=== PATIENT | female | born 1975 | race Caucasian/White ===

== ENCOUNTER 2017-07-23 13:44 | Observation (INO) | payer OTHER ==
[~2017-07-23] VITALS: Ht 160 cm; Wt 71.7 kg
--- NOTE | ~2017-07-23 | ER ---
PATIENT'S NAME: MARILYN VALDEZ [facility] AGE: 42 Y [address] ROOM: G6339 [place], [place] [address] LOCATION: GPCU ADMIT DATE: 07/23/2017 ER/Outpatient Report DISCHARGE DATE: 07/24/2017 FAMILY PHYSICIAN: Hi Cooper MD ATTENDING PHYSICIAN: Dayo Hester TIME OF ARRIVAL: 1349 hours. TIME OF EXAM: 1350 hours. CHIEF COMPLAINT: Near syncopal episode. HISTORY OF PRESENT ILLNESS: The patient reports that she has been having problems with shortness of breath off and on for the past 2 years. Usually with rest things get better, but she states she could not go very far or do much activity before she does get short of breath. She reports last night she was mowing their camp area when she became very short of breath. She felt like she couldn't catch her breath. She did stop. They were at the [place] [facility] area, so she did lay down on a picnic table. She said it took a lot longer for her to get her breath back and for her to feel like she could breathe without having pain than it normally does. She states she has had some twinges of the left chest area ever since. Reports that she felt as though she was going to pass out with the episode last night. Today, she did call and talk with her primary provider in [place] and they recommended that she come here to the ER to be evaluated. She continues to have twinges of left chest pain. Currently, she states she is a little short of breath. She feels as though if she were to get on a treadmill at this time, she would pass out. She feels there is a fullness in her neck area. She denies having any difficulty breathing and has no problems with swallowing. She just feels a fullness in her chest and her neck area. She has not had a fever. She has not had any nausea and no vomiting. She has not been diaphoretic. Has not had any change in bowel or bladder pattern. ALLERGIES: SHE HAS NO KNOWN ALLERGIES. CURRENT MEDICATIONS: On her chart and reviewed by me. PAST MEDICAL HISTORY: Seasonal allergies, GERD, depression, and constipation. She had exercise- induced asthma when she was younger. She has a strong family history of heart PATIENT'S NAME: MARILYN VALDEZ [facility] AGE: 42 Y [address] ROOM: G6[address] [place], [place] [address] LOCATION: GPCU ADMIT DATE: 07/23/2017 ER/Outpatient Report DISCHARGE DATE: 07/24/2017 FAMILY PHYSICIAN: Hi Cooper MD ATTENDING PHYSICIAN: Dayo Hester. Both her mom and aunt have had heart problems. PAST SURGICAL HISTORY: C-sections x3. SOCIAL HISTORY: She presents to the ER accompanied by her . She states she quit smoking back in 1996. Denies use of drugs or alcohol. REVIEW OF SYSTEMS: Negative other than those mentioned in the HPI. PHYSICAL EXAMINATION: VITAL SIGNS: She weighed 69.7 kg. Blood pressure is 163/94, pulse is 72, respirations 20, temperature of 97 tympanic, and O2 saturation 100% on room air. Debora Coma Scale is 15. GENERAL: She is awake, alert, and oriented x4. HEENT: Pupils are equal reactive to light. Extraocular movement is intact. Oropharynx is clear posteriorly. SKIN: [place], warm, and dry. RESPIRATIONS: Even and nonlabored. NECK: Supple. No lymphadenopathy. LUNGS: Lung sounds are clear throughout. HEART: Regular rate and rhythm. Monitor shows a sinus rhythm. ABDOMEN: Soft and nondistended. Bowel sounds are present. EXTREMITIES: She walked in with a steady, even gait. Moves all extremities strongly and equally. ER COURSE: Initial EKG was completed. It shows sinus rhythm. There is some T-wave inversion in leads V1 and V2. It was reviewed with Dr. Ag. CBC is within normal limits. Her white count was 5.5 with hemoglobin of 12.9 and hematocrit of 38.6. Chem panel: Sodium is 140, potassium is 3.8, chloride is 106, BUN is 10 with creatinine 0.9. Her magnesium is 2.1. CPK is 144, CK-MB is 0.4, and troponin is negative. D-dimer was 0.36. ProBNP is 56. Free T4 is 0.9. TSH is 1.14. The patient was monitored. She continued to be in a sinus rhythm throughout the ER stay. She states that the chest pain twinges have stopped. She denies having any pain at this time. Her heart rate has been 56 to 70. Blood pressure did come down nicely, last one was 121/76. I did consult Dr. Ag regarding the patient. He did go and talk with the patient and evaluated her. Chest x-ray was completed. No acute abnormality is seen. Dr. Hester was contacted regarding the patient for admission. IMPRESSION: 1. Chest pain, rule out acute cardiac syndrome. PATIENT'S NAME: MARILYN VALDEZ [facility] AGE: 42 Y [address] ROOM: [address] [address] [facility] ADMIT DATE: 07/23/2017 ER/Outpatient Report DISCHARGE DATE: 07/24/2017 FAMILY PHYSICIAN: Hi Cooper MD ATTENDING PHYSICIAN: Dayo Hester 2. Near syncopal episode. 3. Dyspnea on exertion. PLAN: Dr. Hester did come down and evaluate the patient. The patient will be admitted for further cardiac evaluation. The patient and her family are aware of plan of care. ROLAND BARRERA, TRISTAN FOR ERIKA AG, DO BUITRAGO/modl /[id number] d: 07/23/17 2348 t: 07/28/17 1441, OUTPATIENT REPORT
--- NOTE | ~2017-07-23 | HP ---
PATIENT'S NAME: MARILYN VALDEZ [facility] AGE: 42 Y [address] ROOM: [facility] [place] [address] LOCATION: GPCU ADMIT DATE: 07/23/2017 History & Physical DISCHARGE DATE: FAMILY PHYSICIAN: Hi Cooper MD ATTENDING PHYSICIAN: MARY ACOSTA DATE OF SERVICE: 07/23/2017 CHIEF COMPLAINT: Chest pain, presyncope, and occasional shortness of breath. HISTORY OF PRESENT ILLNESS: This is a very pleasant 42-year-old female with past medical history notable for depression, seasonal allergies, exercise-induced asthma, and GERD, who presents with her latest episode of feeling like she could not catch her breath, visual field disturbance, chest discomfort, and feeling like she could "pass out". This was noted yesterday mid afternoon while mowing her lawn in the heat. She has had episodes like this going for nearly two years now, though notes this was the worst of the episodes. She was seen by family members during the episode, did not pass out or lose consciousness, but was noted to be "walking in a daze and not making eye contact". She was also thought to be relatively confused following getting back to sit down to recover her breath. She currently denies any recent fever or chills. Right now, no chest pain or shortness of breath, no recent URI or cold symptoms, no nausea or vomiting or abdominal pain. She does note diaphoresis at the time of the event and she also just notes that her activity level has been quicker to trigger shortness of breath than she feels is normal. No bowel or bladder dysfunction or other concerns from the patient. She actually feels well currently and seeking to find an answer for her recurrent symptoms. PAST MEDICAL HISTORY: 1. Major depressive disorder. 2. Seasonal allergies. 3. Exercise-induced asthma. 4. GERD. PAST SURGICAL HISTORY: C-sections x3. FAMILY HISTORY: Extensive cardiovascular disease noted throughout family. SOCIAL HISTORY: Former smoker, quit in 1996. Denies significant alcohol use or drug use. PATIENT'S NAME: MARILYN VALDEZ [facility] AGE: 42 Y [address] ROOM: [facility] [place] [address] LOCATION: GPCU ADMIT DATE: 07/23/2017 History & Physical DISCHARGE DATE: FAMILY PHYSICIAN: Hi Cooper MD ATTENDING PHYSICIAN: MARY ACOSTA ALLERGIES: NO KNOWN DRUG ALLERGIES. MEDICATIONS: 1. Escitalopram. 2. Metamucil. 3. Hhys-lzq-okfpreu anti-reflux med as well as Hydroxycut a weight loss supplement that she has recently started. REVIEW OF SYSTEM: Complete review of systems performed and negative except as per the HPI above. PHYSICAL EXAMINATION: VITAL SIGNS: Temperature 97.0, pulse 72, blood pressure 163/94, saturating 100% on room air, and respirations 20. GENERAL: The patient is in no acute distress, lying comfortably in bed, in ER. HEENT: Head: Normocephalic and atraumatic. Eyes: Pupils equal, round, and reactive to light. Extraocular muscles intact. No scleral icterus. No conjunctival injection. ENT: Moist mucous membranes. No nasal drainage. No posterior oropharyngeal erythema. NECK: Supple. No lymphadenopathy. No thyromegaly. No palpable masses. No carotid bruits. CARDIOVASCULAR: Regular rate and rhythm. No murmurs, rubs, or gallops appreciated. Pulses 2+ bilaterally including radial and dorsalis pedis. RESPIRATIONS: Lungs are clear to auscultation bilaterally with normal respiratory effort. Saturating well on room air. ABDOMEN: Soft, nontender, and nondistended. Normoactive bowel sounds. EXTREMITIES: Without appreciable edema or skin lesions. NEUROLOGIC: Alert and oriented x3. Pleasant and cooperative with exam. PSYCH: Normal mood and affect. LABS AND IMAGING: CBC notable for white count 5.5, hemoglobin 12.7, and platelets 314. CMP with sodium 140, potassium 3.8, chloride 106, bicarb 26, BUN 10, creatinine 0.9, glucose 73, and calcium 8.6. LFTs normal. Magnesium 2.1. Thyroid studies normal with TSH of 1.4. BNP 56. D-dimer 0.36. Troponin negative. An EKG with incidental finding of nonspecific T-wave changes in V1 and V2. Chest x- ray is also benign. ASSESSMENT: 1. Nonspecific chest discomfort with presyncope on a recurrent basis. 2. History of exercise-induced asthma as well as allergies. PLAN: PATIENT'S NAME: MARILYN VALDEZ [facility] AGE: 42 Y [address] ROOM: [facility] [place], [place] [address] [facility] ADMIT DATE: 07/23/2017 History & Physical DISCHARGE DATE: FAMILY PHYSICIAN: Hi Cooper MD ATTENDING PHYSICIAN: MARY ACOSTA Differential remains relatively broad at this point includes heat exhaustion, structural cardiac abnormality versus arrhythmia, vocal cord spasm, allergen- induced asthma attack or exercise-induced asthma as per her history, seizure though this would be an absence type seizure, not common in adults. We will initiate workup with serial cardiac enzymes as well as transthoracic echocardiogram and attempt to arrange for stress test in the morning. We will monitor on telemetry and consider carotid ultrasound as well as outpatient spirometry should we not be able to obtain an etiology of her symptoms during her stay. The patient is full code. We will treat DVT prophylaxis with heparin 5000 units subcu t.i.d. Time spent on date of admission is 25 minutes involving review of records from the emergency department and direct patient's care. MD OUMAR RDZ/modl /[id number] D: [id number] T: [id number] HISTORY & PHYSICAL
--- NOTE | ~2017-07-23 | ECHO ---
Cardiac Stress Test Demographics Patient Name MARILYN VALDEZ Date of Study 07/24/2017 Patient Number [id number] Visit Number [id number] Date of 1975 Room Number G6339 Gender Female Number Age 42 year(s) Referring Kenneth Welsh MD Interpreting CNC Physician Physician Edna Bey MD Physician Ordering Ultrasound Technician Physician Supervising Edna Bey Stress Management Coordinator Enoch Leon RVT, MD/MAY VELASQUEZ Nurse Shakira Devine RN Procedure Type of Study Cardiac Stress Test:TREADMILL STRESS TEST. Procedure Date Date: 07/24/2017 Start: 09:30 AM Indications:Syncopal Episode, Chest pain and Shortness of breath. Conclusions Summary Duration: 9:57 mins. Achieved: 98% MPHR. METs: 11.6 DP: 31 K. No chest pain. Reason for termination: Fatigue and SOB. EKG: Positive for ischemia . No arrythmias. DTS: 4.6 (Moderate risk) Risk Factors - The patient's risk factor(s) include: lack of physical activity. - The patient has a former tobacco history. Stress Protocol Stress Predicted HR: 178 bpm Signature dtt: Maida Bishop dtd: 07/24/17 0930 Physician Self Edit
--- NOTE | ~2017-07-23 | ECHO ---
Transthoracic Echocardiography Report (TTE) Demographics Patient Name MARILYN VALDEZ Date of Study 07/24/2017 J Patient Number [id number] Visit Number [id number] Date of 1975 Room Number G6339 Accession Number [id number] Gender Female Age 42 year(s) Referring Kenneth Welsh MD Facility Supervisor Enoch Leon RVT Physician Kacie Oshea CRNA Physician Interpreting Edna Bey Urban Designer Physician Supervising Ordering Physician Kacie Oshea CRNA, MD/MLP Nurse Stress Digital Circuit Designer Conclusions Contractility Score Summary Normal Left Ventricular contractility was noted. Summary The estimated left ventricular ejection fraction is 50-55% with normal internal dimension and WM.Mild concentric left ventricular hypertrophy. Procedure Type of Study TTE procedure:2D Echocardiogram. Procedure Date Date: 07/24/2017 Start: 10:02 AM Study Location: Echo Lab Technical Quality: Adequate visualization Indications:Chest pain. Appropriate Use Criteria: 9 Patient Status: Routine HR: 87 bpm BP: 125/81 mmHg M-Mode/2D Measurements LV Diastolic Dimension: 3.96 cm LV Systolic Dimension: 2.66 cm LV Septum Diastolic: 1.15 cm LV PW Diastolic: 1.3 cm AO Root Dimension: 2.3 cm Cardiac Output: 4.34 l/min AV Cusp Separation: 1.9 cm RV Diastolic Dimension: 3.13 cm LA volume: 33 ml LVOT: 1.9 cm RV Base: 2.65 cm LVOT VTI: 17.6 cm RV Mid: 2.89 cm LV Stroke volume: 49.88 ml TAPSE: 1.81 cm TDI-S': 14.4 cm/s Doppler Measurements AV Peak Velocity: 1.41 m/s MV Peak E-Wave: 0.87 m/s AV Peak Gradient: 7.95 mmHg MV Peak A-Wave: 0.54 m/s AV Mean Gradient: 4 mmHg MV E/A Ratio: 1.62 LVOT Peak Velocity: 0.94 m/s TR Velocity:1.32 m/s PV Peak Velocity: 1.07 m/s TR Gradient:6.97 mmHg PV Peak Gradient: 4.58 mmHg Estimated RAP:10 mmHg Estimated PASP: 16.97 mmHg Estimated RVSP: 17 mmHg A' Septal Velocity: 0.12 m/s E' Septal Velocity: 0.08 m/s A' Lateral Velocity: 0.09 m/s E' Lateral Velocity: 0.12 m/s Findings Left Ventricle Mild concentric left ventricular hypertrophy with normal internal dimension,EF and WM. Right Ventricle Normal right ventricle structure and function. Left Atrium Normal left atrial size. Right Atrium Normal right atrial size. Mitral Valve Normal mitral valve structure and function. Aortic Valve Normal aortic valve structure and function. Tricuspid Valve Trivial tricuspid regurgitation by color Doppler. Pulmonic Valve Trivial pulmonic valve regurgitation by color Doppler. Pericardial Effusion No evidence of pericardial effusion. Miscellaneous Visualized portions of the aortic root and ascending aorta appear normal in size. Pleural Effusion No evidence of pleural effusion. Contractility Score LV regional wall motion:(0-Non visualized 1-Normal 2-Hypokinesis 3-Akinesis 4-Dyskinesis 5-Aneurysm) Signature dtt: Maida Bishop dtd: 07/24/17 1002 Physician Self Edit
[2017-07-23 14:23] LABS: BASOPHIL % 0.7 %; EOSINOPHIL # 0.1 K/uL (0.0-0.5); EOSINOPHIL % 1.6 %; HEMATOCRIT 38.6 % (33.0-46.0); HEMOGLOBIN 12.9 g/dL (10.0-15.0); IMMATURE GRANULOCYTE % 0.2 %; LYMPHOCYTE # 2.6 K/uL (0.8-4.0); LYMPHOCYTE % 47.3 %; MCH 29.7 pg (27.0-34.0); MCHC 33.4 gm/dL (32.0-36.5); MCV 88.9 fl (83.0-98.0); MONOCYTE # 0.4 K/uL (0.0-1.0); MONOCYTE % 6.7 %; MPV 10.6 fl (9.4-12.4); NEUTROPHIL # (ANC) 2.4 K/uL (1.8-7.8); NEUTROPHIL % 43.5 %; NRBC % 0 /100WBC (0-0.00); PLATELET COUNT 314 K/uL (150-450); RBC 4.34 M/uL (3.50-5.50); RDW-CV 12.4 % (11.9-14.6); WBC 5.5 K/uL (4.0-11.0)
[2017-07-23 14:29] LABS: INR - (THERAPEUTIC) 0.95 (0.92-1.07); PTT 25 SECONDS (25-32)
[2017-07-23 14:40] LABS: ALBUMIN 3.6 gm/dL (3.5-5.0); ALK PHOS 57 IU/L (33-138); ALT 20 IU/L (12-78); ANION GAP 11.8 (10.0-19.0); AST 13 IU/L (10-40); BLOOD UREA NITROGEN 10 mg/dL (6-24); CALCIUM 8.6 mg/dL (8.5-10.5); CHLORIDE 106 mMol/L (96-110); CO2 26 mMol/L (22-32); CPK 144 IU/L (21-215); CREATININE 0.9 mg/dL (0.5-1.1); MAGNESIUM 2.1 mg/dL (1.8-2.6); POTASSIUM 3.8 mMol/L (3.7-5.1); SODIUM 140 mMol/L (135-145); TOTAL BILIRUBIN 0.7 mg/dL (0.0-1.5); TOTAL PROTEIN 7.2 g/dL (6.0-8.4)
[2017-07-23 16:38] LABS: CPK 133 IU/L (21-215)
[2017-07-23] MEDS ORDERED: LEXAPRO10 MG PO (17:06)
[2017-07-23] MEDS ORDERED: CLARITIN10 MG PO (17:08)
[2017-07-23] MEDS ORDERED: NEXIUM20 MG PO (17:24)
[2017-07-24 03:39] LABS: BASOPHIL % 0.6 %; EOSINOPHIL # 0.1 K/uL (0.0-0.5); EOSINOPHIL % 1.9 %; HEMATOCRIT 36.2 % (33.0-46.0); IMMATURE GRANULOCYTE % 0.1 %; LYMPHOCYTE # 3.7 K/uL (0.8-4.0); LYMPHOCYTE % 53.2 %; MCH 29.9 pg (27.0-34.0); MCHC 33.1 gm/dL (32.0-36.5); MONOCYTE # 0.5 K/uL (0.0-1.0); MONOCYTE % 7.3 %; MPV 10.3 fl (9.4-12.4); NEUTROPHIL # (ANC) 2.6 K/uL (1.8-7.8); NEUTROPHIL % 36.9 %; NRBC % 0 /100WBC (0-0.00); PLATELET COUNT 279 K/uL (150-450); RBC 4.02 M/uL (3.50-5.50); RDW-CV 12.7 % (11.9-14.6)
[2017-07-24 04:00] LABS: ANION GAP 8.1 (10.0-19.0); BLOOD UREA NITROGEN 9 mg/dL (6-24); CHLORIDE 109 mMol/L (96-110); CO2 27 mMol/L (22-32); CREATININE 0.8 mg/dL (0.5-1.1); POTASSIUM 4.1 mMol/L (3.7-5.1); SODIUM 140 mMol/L (135-145)
== END 2017-07-24 17:10 | disposition disaster alternative care site (69) ==
LOC: GMED 13:44 → GPCU 15:47
PROVIDERS: Emergency Medicine; ADMIT Internal Medicine
DX: R06.02 Shortness of breath (principal); R55 Syncope and collapse; R07.89 Other chest pain; F32.9 Major depressive disorder, single episode, unspecified; J45.990 Exercise induced bronchospasm; K21.9 Gastro-esophageal reflux disease without esophagitis
CPT/HCPCS: G0378; J1644; J7030

== ENCOUNTER 2017-07-27 08:39 | Outpatient (CLI) | payer OTHER ==
[~2017-07-27] VITALS: Ht 160 cm; Wt 68.3 kg
--- NOTE | ~2017-07-27 | CATH ---
Cardiac Diagnostic Report Demographics Patient Name COURTNEY SANDERS Gender Female J Date of 1975 Age 42 year(s) Patient Number [id number] Date of Study 07/27/2017 Visit Number [id number] Room Number G6399 [place] [id number] Ht 160.02 cm Wt 68.3 kg Referring Isabelle Esquivel MD Primary Physician Physician Performing Isabelle Esquivel MD Secondary Physician Physician Diagnostic Isabelle Esquivel MD Assisting Physician Physician Interventional Physician Air Traffic Control Supervisor Physician Findings and Conclusions Diagnostic Findings and Conclusion Nonobstructive CAD. Normal LV function. Routine post Perclose deployment. Diagnostic Recommendations Medical therapy. Procedure Description The patient was brought to the diagnostic cardiac catheterization-EP laboratory in the fasting, non-sedated state. Informed consent was obtained in the written and verbal form after the risks and benefits were explained. The patient had no further questions and agreed to proceed. The planned puncture-incision site(s) were shaved and prepped with ChloraPrep and draped in the usual sterile manner. Conscious sedation, supplemental oxygen, and pain control medications were delivered by a registered nurse under physician guidance. Surface ECG rhythm, blood pressure measurement, and pulse oximetry were monitored throughout the procedure. Arterial access. The access site was infiltrated with lidocaine. The vessel was entered with the Seldinger technique. A sheath was advanced into the vessel and used for catheter placement. Selective left coronary angiography. A catheter was advanced into the left coronary vessel ostium under Fluoroscopic guidance. Contrast was injected by hand. Images were obtained in multiple projections. Selective right coronary angiography. A catheter was advanced into the right coronary vessel ostium under fluoroscopic guidance. Contrast was injected by hand. Images were obtained in multiple projections. Left heart catheterization with ventriculography. A catheter was advanced across the aortic valve to the left ventricle under fluoroscopic guidance. Resting hemodynamics were obtained. With the catheter at the left ventricular apex, contrast was injected. Images were obtained in EDITH projections. Post-ventriculography LV pressure was obtained. The catheter was gradually withdrawn into the aorta with continuous pressure recording. Arterial artery hemostasis was achieved. The patient was transferred to a regular nursing floor via cart accompanied by a nurse. The patient left the laboratory in stable condition. Diagnostic Cath Status: Elective Procedure Procedure Type Diagnostic procedure:Angiography:, Coronary Angios w/[facility] Indications: Shortness of breath. The procedure was explained in detail to the patient. Risks, complications and alternative treatments were reviewed. Written consent was obtained. Medications Reviewed with Patient prior to Procedure. Angiographic Findings Dominance: Right Cardiac Arteries and Lesion Findings LMCA: Normal (0% Stenosis).Large, normal. LAD: Normal (0% Stenosis).LAD medium, normal. Diagonal 1 small ok. LCx: Normal (0% Stenosis).Circumflex dominant, large normal. OM1 small normal, OM2 large, normal. RCA: Normal (0% Stenosis).RA nondominant, small, normal. Procedure Data Procedure Date Date: 07/27/2017Start: 11:33 AMEnd: 12:04 PM Entry Locations - Retrograde Percutaneous access was performed through the Right Femoral artery (Primary location). A 6 Fr sheath was inserted. Hemostasis was successfully obtained using Perclose ProGlide ([employer]). Closure Comments: Deployed by Tanja Jeff. Procedure Medications Order and Administration + + +-------+------+ !Time !Medication !Dosage !Route ! + + +-------+------+ !07/27/2017 11:32 AM !Versed !1 mg !I.V. ! + + +-------+------+ !07/27/2017 11:51 AM !Fentanyl !25 mcg !I.V. ! + + +-------+------+ !07/27/2017 11:32 AM !Fentanyl !50 mcg !I.V. ! + + +-------+------+ Devices Used - A6 Fr. BS JL 4 Diag. Catheterwas used for:Left coronary angiography. - A6 Fr. BS JR 4 Diag. Catheterwas used for:Right coronary angiography.Unable to cannulate the vessel. - A5 Fr. JJ 3DRC Diag. Catheterwas used for:Right coronary angiography. - A6 Fr. BS Angled Pigtail Diag. Catheterwas used for:Left ventriculography. Contrast Material - Isovue 078145 ml Fluoroscopy Time: Diagnostic: 4:24 minutes. Total: 4:24 minutes. Fluoroscopy Dose: Diagnostic: 523 mGy. Total: 523 mGy. Estimated Blood Loss: 4 ml. Medical History Allergies - No known allergies. Risk Factors The patient risk factors include:family history of premature CAD, last creatinine: 0.8 mg/dl, creatinine clearance: 98.77 ml/min and former tobacco use. Admission Data Admission Date: 07/27/2017 Admission Time: 08:39 AM Admit Source: Other Insurance Payors: Private health insurance. Clinical Evaluation Leading to Procedure - The patient's CAD presentation was assessed as: Unstable angina. VA Ventriculography Findings Normal LV function. EF 60-65% LV function assessed as:Normal. Ejection Fraction - 07/27/2017 - Method: LV gram. EF%: 65. Hemodynamics Condition: Rest O2 Consumption: Estimated: 164.16Heart Rate: 57 bpm Pressures (mmHg) +-----+ + !Site !Pressure ! +-----+ + !AO !125/64 (87) ! +-----+ + !LV !125/2 ,10 ! +-----+ + !LV !123/1 ,10 ! +-----+ + !LV !117/1 ,12 ! +-----+ + !LV !122/2 ,11 ! +-----+ + !AO !131/67 (95) ! +-----+ + !LV !129/1 ,11 ! +-----+ + !AO !132/67 (95) ! +-----+ + Valve Gradients and Areas + +---------+---------+---------+ +---------+ + !Valve !Peak !Mean !Area !Index !Flow !Source ! + +---------+---------+---------+ +---------+ + !Aortic !0 !0 ! ! ! ! ! + +---------+---------+---------+ +---------+ + !Aortic !0 !0 ! ! ! ! ! + +---------+---------+---------+ +---------+ + Shunts Oxygen Values O2 Capacity 163.2 O2 Consumption 164.16 Discharge Data Discharge Date: 07/27/2017 Hospital Status: Outpatient Signatures dtt: Alvin Walton (cardio) dtd: 07/27/17 1133 Physician Self Edit
== END 2017-07-27 15:43 | disposition disaster alternative care site (69) ==
LOC: GPOC 08:39 → GPCU 08:39 → GPOC 09:00
DX: Z01.818 Encounter for other preprocedural examination (principal); R06.02 Shortness of breath; Z79.891 Long term (current) use of opiate analgesic
CPT/HCPCS: C1760; J1644; J2001; J2250; J3010; J7030

== ENCOUNTER 2017-07-27 17:01 | Emergency (ER) | payer OTHER ==
--- NOTE | ~2017-07-27 | ER ---
PATIENT'S NAME: MARILYN VALDEZ [facility] AGE: 42 Y [address] ROOM: [place] [address] LOCATION: [facility] ADMIT DATE: 07/27/2017 ER/Outpatient Report DISCHARGE DATE: 07/27/2017 FAMILY PHYSICIAN: Hi Cooper MD ATTENDING PHYSICIAN: Sohan Brown CHIEF COMPLAINT: Dehydration. HISTORY OF PRESENT ILLNESS: Ms. Valdez presents from the clinic of Dr. Alvin Walton, clinical trials manager. Dr. Walton called ahead and noted the patient was found to be markedly orthostatic in his office. She has been having some syncopal episodes and received a heart catheterization this morning with no interventions. Her hemoglobins have been stable from before and after procedure, per Dr. Walton. She just had not eaten anything since yesterday evening and feels like she needs some fluids. She is asymptomatic upon being stationary and recumbent; however, any time she gets up, she gets very dizzy. Blood pressures dropped down into the 80s in the office. The patient denies any groin pain or other issues and has not done anything for this. PAST MEDICAL HISTORY: Documented on the record and reviewed by me. SOCIAL HISTORY: Documented on the record and reviewed by me. MEDICATIONS: Documented on the record and reviewed by me. ALLERGIES: DOCUMENTED ON THE RECORD AND REVIEWED BY ME. REVIEW OF SYSTEMS: All systems reviewed and negative except as noted in the HPI. PHYSICAL EXAMINATION: VITAL SIGNS: Blood pressure 135/74, pulse 56, respiratory rate 18, temperature 97.7, and SpO2 is 99% on room air. Pain is rated 0/10. GENERAL: An age-appropriate female, recumbent on the exam table, in no apparent pain or distress. NEUROLOGIC: Awake and alert. GCS of 15. No focal deficits. No asymmetry. HEENT: Normocephalic, atraumatic. Eyes are PERRL. Oropharynx is clear. NECK: Supple. Trachea is midline. CHEST: Heart has a regular rate and rhythm with no murmurs. Lungs are clear PATIENT'S NAME: MARILYN VALDEZ [facility] AGE: 42 Y [address] ROOM: [place] [address] LOCATION: ED ADMIT DATE: 07/27/2017 ER/Outpatient Report DISCHARGE DATE: 07/27/2017 FAMILY PHYSICIAN: Hi Cooper MD ATTENDING PHYSICIAN: Sohan Brown to auscultation bilaterally with no rhonchi, wheezes, or rales. ABDOMEN: Soft, nontender, and nondistended. BACK: Normal to inspection. EXTREMITIES: Warm and well perfused. No obvious abnormalities. SKIN: Clean, dry, and intact. LABORATORY AND X-RAY DATA: None. IMPRESSION: Orthostasis. EMERGENCY DEPARTMENT COURSE: The patient was seen and evaluated as above. She was given 1 L of normal saline. This resolved her symptoms with motion changes. She was not orthostatic as she had no symptoms, but she did have increase in heart rate of 21 points from lying to standing. Otherwise, she had no symptoms. She was feeling much better and wanted to go. Thus, she was discharged home with instructions to go to her nearest ER if her symptoms recur, although I think it is likely that this is related to her fasting state, decreased oral intake given from a hydration standpoint, and her mild sedation medicines during the catheterization procedure. All questions were answered, and the patient was discharged in good condition. MD OTONIEL TENORIO/kenneth /[id number] d: 07/28/17 1501 t: 08/02/17 0749, OUTPATIENT REPORT
== END 2017-07-27 18:40 | disposition disaster alternative care site (69) ==
LOC: GMED 17:01
DX: I95.1 Orthostatic hypotension (principal); E86.0 Dehydration; Z95.828 Presence of other vascular implants and grafts; Z98.890 Other specified postprocedural states
CPT/HCPCS: J7030

== ENCOUNTER → 2017-07-27 | Outpatient (CLI) | payer OTHER ==
[~2017-07-27] MED LIST: CLARITIN10 MG PO; LEXAPRO10 MG PO; NEXIUM20 MG PO
[2017-07-27 16:24] LABS: BASOPHIL % 0.7 %; EOSINOPHIL # 0.1 K/uL (0.0-0.5); EOSINOPHIL % 1.7 %; HEMATOCRIT 36.6 % (33.0-46.0); HEMOGLOBIN 12.2 g/dL (10.0-15.0); LYMPHOCYTE % 51.7 %; MCH 29.9 pg (27.0-34.0); MCHC 33.3 gm/dL (32.0-36.5); MCV 89.7 fl (83.0-98.0); MONOCYTE # 0.5 K/uL (0.0-1.0); MONOCYTE % 7.8 %; MPV 10.3 fl (9.4-12.4); NEUTROPHIL # (ANC) 2.2 K/uL (1.8-7.8); NEUTROPHIL % 38.1 %; NRBC % 0 /100WBC (0-0.00); PLATELET COUNT 295 K/uL (150-450); RBC 4.08 M/uL (3.50-5.50); RDW-CV 12.6 % (11.9-14.6); WBC 5.9 K/uL (4.0-11.0)
== END ==
LOC: LCNC 16:21
PROVIDERS: Internal Medicine Interventional Cardiology
DX: I95.1 Orthostatic hypotension (principal)